=== PATIENT | male | born 1935 | race Caucasian/White ===

== ENCOUNTER 2018-03-05 11:56 | Day surgery (SDC) | payer MEDICARE, OTHER ==
[2018-03-05] VITALS (10 sets, daily range): BP systolic 102–122; BP diastolic 59–72; PULSE 78–124; TEMP 97.8–98.5
[~2018-03-05] VITALS: Ht 180.3 cm; Wt 98.8 kg
[2018-03-05] MEDS ORDERED: HCTZ 25MG TAB25 MG PO (12:15)
[2018-03-05] MEDS ORDERED: LIPITOR 80MG80 MG PO (12:16)
[2018-03-05] MEDS ORDERED: FLOMAX 0.40.4 MG/CAP PO (12:16)
[2018-03-05] MEDS ORDERED: ASPIRIN 32325 MG/TAB PO (12:20)
[2018-03-05] MEDS ORDERED: PROSCAR 5MG5 MG PO (12:21)
[2018-03-05] MEDS ORDERED: ULTRAM 50MG TAB50 MG PO (12:21)
[2018-03-05] MEDS ORDERED: SMZ/TMPDS PO (12:22)
[2018-03-05 12:43] LABS: BASO # 0.1 (0.0-0.2); BASO % 0.5 % (0.0-2.0); EOS # 0.3 (0.0-0.7); EOS % 3.4 % (0-4.0); GRAN # 8.2 (1.4-6.5); GRAN % 81.1 % (42.2-75.2); HEMATOCRIT 43.9 % (42.0-52.0); HEMOGLOBIN 14.7 g/dl (13.5-18.0); LYMPH # 0.5 (1.2-3.4); LYMPH % 5.3 % (20.0-51.0); MEAN CELL VOLUME 87 fl (80.0-100.0); MEAN CORPUSCULAR HEMOGLOBIN 29 pg (27.0-31.0); MEAN CORPUSCULAR HGB CONC 34 g/dl (33.0-37.0); MEAN PLATELET VOLUME 9.8 fl (7.4-10.4); MONO % 9.5 % (1.7-9.3); PLATELET COUNT 272 K/mm3 (130-400); RED BLOOD COUNT 5.03 M/mm3 (4.20-5.60); REDCELL DISTRIBUTION WIDTH-CV 13.5 % (11.5-14.5)
[2018-03-06 01:22] VITALS: BP 117/63; PULSE 83; TEMP 98.2
[2018-03-06 05:27] VITALS: BP 143/71; PULSE 97; TEMP 98.2
[2018-03-06 09:55] VITALS: BP 133/59; PULSE 83; TEMP 98
[2018-03-06 13:41] VITALS: BP 127/58; PULSE 88; TEMP 98.2
[2018-03-06 17:32] VITALS: BP 133/66; PULSE 88; TEMP 98.2
[2018-03-06 21:14] VITALS: BP 121/61; PULSE 81; TEMP 98.4
[2018-03-07 01:16] VITALS: BP 120/59; PULSE 81; TEMP 97.6
[2018-03-07 05:13] VITALS: BP 137/70; PULSE 84; TEMP 98.2
[2018-03-07 09:40] VITALS: BP 115/56; PULSE 85; TEMP 98.5
[2018-03-07 14:14] VITALS: BP 125/62; PULSE 85; TEMP 98.5
== END 2018-03-07 18:50 | disposition home or self-care (01) ==
LOC: SDCO 11:56 → SURG 16:13 → SDCO 16:45
PROVIDERS: Urology
DX: D07.5 Carcinoma in situ of prostate (principal); N40.1 Benign prostatic hyperplasia with lower urinary tract symptoms; R33.8 Other retention of urine; R35.0 Frequency of micturition; R35.1 Nocturia; R39.12 Poor urinary stream; Z95.0 Presence of cardiac pacemaker; Z85.820 Personal history of malignant melanoma of skin; Z79.82 Long term (current) use of aspirin; Z87.891 Personal history of nicotine dependence; Z80.6 Family history of leukemia; Z88.8 Allergy status to other drugs, medicaments and biological substances; I10 Essential (primary) hypertension; E78.00 Pure hypercholesterolemia, unspecified; Z96.89 Presence of other specified functional implants
CPT/HCPCS: OP; J0690; J1100; J2270; J2405; J2704; J3010; J7120

== ENCOUNTER 2019-10-06 10:56 | Day surgery (SDC) | payer MEDICARE, OTHER ==
[~2019-10-06] VITALS: Ht 180.3 cm; Wt 96.0 kg
[2019-10-06] VITALS (9 sets, daily range): BP systolic 120–153; BP diastolic 63–75; PULSE 74–85; TEMP 86–98
[~2019-10-06 10:56] MED LIST: ASPIRIN 32325 MG/TAB PO; FLOMAX 0.40.4 MG/CAP PO; HCTZ 25MG TAB25 MG PO; LIPITOR 80MG80 MG PO; PROSCAR 5MG5 MG PO; SMZ/TMPDS PO; ULTRAM 50MG TAB50 MG PO
[2019-10-06] MEDS ORDERED: ASPIRIN 32325 MG/TAB PO (11:22)
--- NOTE | 2019-10-06 12:00 | NUR ---
Patient rounding complete. Call light in reach. Denies needs at this time.
--- NOTE | 2019-10-06 13:00 | NUR ---
Patient rounding complete. Call light in reach. Escorted to restroom and returns to room. Family to eat lunch. Denies needs.
--- NOTE | 2019-10-06 14:22 | NUR ---
Patient rounding completed. Chatted with patient and family for 10 minutes. They are in good spirits, despite delayed surgical start time. They deny any questions or needs at this time.
--- NOTE | 2019-10-06 14:39 | NUR ---
Patient to the OR at this time with OR staff.
--- NOTE | 2019-10-06 16:40 | NUR ---
returned to room per bed from PACU, awake and alert, IV infusing per dial-a-flow at 125ml/hr, O2 off and O2 sat 98%, hernandez cath patent with CBI running at a fast rate and urine in tubing is clear to light pink, denies pain or needs
--- NOTE | 2019-10-06 17:00 | NUR ---
resting between checks, and daughter at bedside, CBI continues to run at a fast rate and urine is clear in tubing and rate was slowed to mod rate, full assessment completed at this time, see interventions for further info, c/o sore throat and explained this was most likely from intubation and not really anythng to be done, encouraged to sip on ice water and verbalizes understanding
--- NOTE | 2019-10-06 17:15 | NUR ---
CBI continues at mod rate with clear urine in tubing
--- NOTE | 2019-10-06 18:00 | NUR ---
urine remains clear and very light in tubing, CBI rate remains at a mod rate
--- NOTE | 2019-10-06 18:30 | NUR ---
appears to be dozing, urine remains clear
--- NOTE | 2019-10-06 18:46 | NUR ---
awake resting in bed, bedside shift report given to MARK moreno
--- NOTE | 2019-10-06 19:50 | NUR ---
Pt. sitting up in bed at this time. Pt. is A&OX3, assessment complete. IV to rt. hand patent, IV fluids infusing per orders. Gatica catheter with CBI running at a moderate/slow rate, urine is pink and clear at this time. Pt. denies pain or other needs, call light within reach.
[2019-10-07] VITALS: BP 113/63; PULSE 77; TEMP 97.3
[2019-10-07 04:00] VITALS: BP 109/62; PULSE 75; TEMP 97.6
--- NOTE | 2019-10-07 06:50 | NUR ---
Reported on to MARK Delgado.
[2019-10-07 07:45] VITALS: BP 126/65; PULSE 77; TEMP 97.5
--- NOTE | 2019-10-07 09:05 | NUR ---
Pt's hernandez catheter was discontinued and 22 mL's were pulled from the balloon. 500 mL's of clear, pink urine was emptied from the bag before removal. Catheter tip in tact and iniated the 6 bottle routine. States his pain is a 0/10 today and ambulated down the halls and was steady.
--- NOTE | 2019-10-07 09:37 | NUR ---
Gatica catheter removed at 0900 with no complications.
--- NOTE | 2019-10-07 10:02 | NUR ---
emergency service worker met with patient to discuss discharge planning. Patient states that he resides with his spouse in [place], [place] and plans to return there today. Patient is the caregiver for his spouse, who has dementia, parkinsons, and MS. Patient states that his daughter, who resides in [place], has been staying with spouse while patient has been hospitalized. Worker provided emotional support and discussed role of caregiver. Patient states he has a list of resources and has met with home health that will assist with care of his when he needs it. Patient's primary care provider is Dr Hameed in [place]. Patient obtains his prescriptions from [place] and through [facility] for recuring medications. Patient states he works out at the fitness center in [place] twice weekly and feels that this is important for his overall health.
[2019-10-07 10:34] VITALS: BP 118/62; PULSE 74; TEMP 97.4
--- NOTE | 2019-10-07 11:00 | NUR ---
Patient alert and oriented, answers questions appropriately. See assessment. Gatica catheter discontinued. Has not voided. No c/o at this time.
--- NOTE | 2019-10-07 11:10 | NUR ---
Pt ambulated to the bathroom and voided 15 mL's of clear, reddish urine. Stated that it "burned" when he voided. Reported off to MARK Delgado.
--- NOTE | 2019-10-07 14:23 | NUR ---
Discharge instructions reviewed with patient and family, verbalized understanding. Discharged ambulatory to auto/home with family at 1410.
== END 2019-10-07 14:10 | disposition home or self-care (01) ==
LOC: SDCO 10:56 → JCC 17:29 → SDCO 10-07 14:10
DX: C67.1 Malignant neoplasm of dome of bladder (principal); C67.8 Malignant neoplasm of overlapping sites of bladder; Z88.8 Allergy status to other drugs, medicaments and biological substances; I10 Essential (primary) hypertension; Z95.0 Presence of cardiac pacemaker; Z87.891 Personal history of nicotine dependence; Z86.73 Personal history of transient ischemic attack (TIA), and cerebral infarction without residual deficits; Z85.820 Personal history of malignant melanoma of skin
CPT/HCPCS: OP; J0690; J1100; J1885; J2270; J2405; J2704; J3010; J3480; J7120; Q9967

== ENCOUNTER 2019-11-06 14:08 | Day surgery (SDC) | payer MEDICARE, OTHER ==
[~2019-11-06] VITALS: Ht 180.3 cm; Wt 94.3 kg
[2019-11-06] VITALS (8 sets, daily range): BP systolic 133–145; BP diastolic 59–85; PULSE 75–89; TEMP 98–98.2
--- NOTE | 2019-11-06 19:00 | NUR ---
Report received. 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 Assessment complete. VS stable. Plan of care discussed for meeting criteria for dischage. Verbalizes understanding. Family remains at bedside. Call light in reach. Will monitor.
--- NOTE | 2019-11-06 20:45 | NUR ---
Has met discharge criteria-voiding without difficulty-tolerating PO. VS remained stable. Discharge instructions given verbal and handwritten. Discussed f/u appt, s/s of infection and home medications. Instructed to hold ASA per dr order. Verbalizes understanding. IV to Left forearm DCd-cath intact. Discharged home in stable condition. Left rodríguez in wheelchair by staff-escorted by family.
== END 2019-11-06 21:30 | disposition home or self-care (01) ==
LOC: SDCO 14:08 → SURG 19:08 → SDCO 21:30
DX: C67.4 Malignant neoplasm of posterior wall of bladder (principal); C67.2 Malignant neoplasm of lateral wall of bladder; N40.1 Benign prostatic hyperplasia with lower urinary tract symptoms; R33.8 Other retention of urine; E78.00 Pure hypercholesterolemia, unspecified; N52.9 Male erectile dysfunction, unspecified; Z85.46 Personal history of malignant neoplasm of prostate; Z95.0 Presence of cardiac pacemaker; Z85.820 Personal history of malignant melanoma of skin; Z87.891 Personal history of nicotine dependence; Z79.82 Long term (current) use of aspirin; Z79.899 Other long term (current) drug therapy; Z96.82 Presence of neurostimulator; Z86.73 Personal history of transient ischemic attack (TIA), and cerebral infarction without residual deficits; Z88.8 Allergy status to other drugs, medicaments and biological substances; Z80.6 Family history of leukemia; Z84.1 Family history of disorders of kidney and ureter
CPT/HCPCS: OP; J0690; J2405; J2704; J3010; J7120